=== PATIENT | female | born 1965 | race Caucasian/White ===

== ENCOUNTER → 2017-07-29 | Outpatient (CLI) | payer OTHER ==
[~2017-07-29] MED LIST: GADOBENATE DIMEGLUMINE 20 ML IV ONE
== END | disposition home or self-care (01) ==
LOC: RAH 10:25
PROVIDERS: ATTEND Physical Medicine & Rehabilitation
DX: Z12.31 Encounter for screening mammogram for malignant neoplasm of breast (principal); M47.896 Other spondylosis, lumbar region
CPT/HCPCS: 72158; 77067; A9577

== ENCOUNTER → 2019-04-20 | Outpatient (CLI) | payer BC, SELFPAY | END | disposition home or self-care (01) | LOC: RAH 13:03 | PROVIDERS: ATTEND Family Medicine | DX: Z12.31 Encounter for screening mammogram for malignant neoplasm of breast (principal) | CPT/HCPCS: 77067 ==

== ENCOUNTER 2021-08-17 02:12 | Emergency (ER) | payer BC ==
[~2021-08-17] VITALS: Ht 162.6 cm; Wt 113.4 kg
[~2021-08-17 02:12] MED LIST changes: +ACET250T28 PO; +ALBUHFA IH; +AMOX-426 PO; +ATOR10 PO; +BUDE10.2 IH; -GADOBENATE DIMEGLUMINE 20 ML IV ONE; +IPRA3AMP24 IH; +MONT10TA21 PO; +PRED20TA3 PO; +PROP40TA7 PO; +SITA100T12 PO
[2021-08-17 03:19] VITALS: BP 111/54
== END 2021-08-17 03:31 | disposition home or self-care (01) ==
LOC: EDH 02:12
DX: M79.604 Pain in right leg (principal); E11.9 Type 2 diabetes mellitus without complications; E78.00 Pure hypercholesterolemia, unspecified; I10 Essential (primary) hypertension; J44.9 Chronic obstructive pulmonary disease, unspecified; Z79.51 Long term (current) use of inhaled steroids; Z79.52 Long term (current) use of systemic steroids; Z79.899 Other long term (current) drug therapy
CPT/HCPCS: 93971

== ENCOUNTER → 2021-09-20 | Outpatient (CLI) | payer BC | END | disposition home or self-care (01) | LOC: RAH 12:47 | PROVIDERS: ATTEND Internal Medicine Pulmonary Disease | DX: I51.7 Cardiomegaly (principal); J84.9 Interstitial pulmonary disease, unspecified; I27.21 Secondary pulmonary arterial hypertension; J98.4 Other disorders of lung | CPT/HCPCS: 36415; 71250; 85651; 86038; 86140; 86215; 86235; 86255; 86431 ==

== ENCOUNTER → 2021-11-07 | Outpatient (CLI) | payer BC | END | disposition home or self-care (01) | LOC: LAB 11:27 | PROVIDERS: ATTEND Physician Assistant | DX: M51.16 Intervertebral disc disorders with radiculopathy, lumbar region (principal); E88.01 Alpha-1-antitrypsin deficiency | CPT/HCPCS: 36415; 72114; 82103; 82104 ==

== ENCOUNTER → 2021-11-08 | Outpatient (CLI) | payer BC | END | disposition home or self-care (01) | LOC: RAH 11:11 | PROVIDERS: ATTEND Physical Medicine & Rehabilitation | DX: M48.061 Spinal stenosis, lumbar region without neurogenic claudication (principal); M54.16 Radiculopathy, lumbar region | CPT/HCPCS: 72148 ==

== ENCOUNTER → 2021-11-25 | Outpatient (CLI) | payer BC | END | disposition home or self-care (01) | LOC: RAH 12:01 | PROVIDERS: ATTEND Internal Medicine Pulmonary Disease | DX: E88.01 Alpha-1-antitrypsin deficiency (principal) | CPT/HCPCS: 71046 ==

== ENCOUNTER → 2022-01-08 | Outpatient (CLI) | payer BC | END | disposition home or self-care (01) | LOC: RAH 15:04 | PROVIDERS: ATTEND Internal Medicine | DX: J98.4 Other disorders of lung (principal) | CPT/HCPCS: 71250 ==

== ENCOUNTER → 2022-01-10 | Outpatient (CLI) | payer BC ==
[~2022-01-10] MED LIST changes: +DAPA10TA PO; +FENTANYL CITRATE PF 50 MCG/1 ML 2ML VIAL ONE; +FLUT1BLS3 IH; +HEPARIN 1,000 UNIT VIAL ONE; +MAGN300C PO; +METO-408 PO; +SITA1TBM7 PO
[2022-01-10 10:13] VITALS: BP 128/61
[2022-01-10 10:30] VITALS: BP 132/72
[2022-01-10 12:21] LABS: BASOPHILS % (AUTO) 0.5 % (0.0-5.0); EOSINOPHILS % (AUTO) 1.9 % (0.0-8.0); HEMATOCRIT 45.5 % (36-48); LYMPHOCYTES % (AUTO) 23.1 % (21.0-51.0); MEAN CORPUSCULAR HEMOGLOBIN 27.9 pg (27.0-33.0); MEAN CORPUSCULAR HGB CONC 32.3 g/dL (32.0-36.0); MEAN CORPUSCULAR VOLUME 86.5 fL (79-99); MONOCYTES % (AUTO) 5.8 % (3.0-13.0); NEUTROPHILS % (AUTO) 68.5 % (40.0-77.0); PLATELET COUNT (AUTO) 189 K/uL (130-400); RED BLOOD CELL COUNT(AUTO) 5.26 MIL/uL (4.00-5.50); RED CELL DISTRIBUTION WIDTH 14.3 % (11.0-15.5); WHITE BLOOD COUNT (AUTO) 8.6 K/uL (4.8-10.8)
[2022-01-10 12:51] LABS: INR 0.93 (0.85-1.15); PROTHROMBIN TIME 10.2 SEC (9.6-11.6)
[2022-01-10 12:52] LABS: CREATININE 0.7 mg/dL (0.5-1.5); PARTIAL THROMBOPLASTIN TIME 27.1 SEC (26.3-35.5); POTASSIUM 4.4 mmol/L (3.5-5.1)
[2022-01-10 14:45] VITALS: BP 120/62
[2022-01-10 15:00] VITALS: BP 126/63
[2022-01-10 15:15] VITALS: BP 127/66
== END | disposition home or self-care (01) ==
LOC: DAH 10:00 → EDSTATUS 10:00
PROVIDERS: ATTEND Surgery
DX: T85.698A Other mechanical complication of other specified internal prosthetic devices, implants and grafts, initial encounter (principal); K57.20 Diverticulitis of large intestine with perforation and abscess without bleeding; F17.200 Nicotine dependence, unspecified, uncomplicated; E88.01 Alpha-1-antitrypsin deficiency; Z90.710 Acquired absence of both cervix and uterus; Z79.01 Long term (current) use of anticoagulants; Z79.899 Other long term (current) drug therapy; Z90.89 Acquired absence of other organs; Y83.8 Other surgical procedures as the cause of abnormal reaction of the patient, or of later complication, without mention of misadventure at the time of the procedure
CPT/HCPCS: 36575; 77001; 80048; 85025; 85610; 85730; 82948; 36415; C1751; C1769; A4663; J3010; J1644 ×2; A4215; A4222; A4221; A4216; J7030; A4606; A4223 ×3

== ENCOUNTER 2022-04-10 17:28 | Emergency (ER) | payer BC ==
[~2022-04-10 17:28] MED LIST changes: -FENTANYL CITRATE PF 50 MCG/1 ML 2ML VIAL ONE; -HEPARIN 1,000 UNIT VIAL ONE
[2022-04-10 18:23] LABS: BASOPHILS % (AUTO) 0.2 % (0.0-5.0); EOSINOPHILS % (AUTO) 0.4 % (0.0-8.0); HEMATOCRIT 43.8 % (36-48); LYMPHOCYTES % (AUTO) 5.1 % (21.0-51.0); MEAN CORPUSCULAR HEMOGLOBIN 28.5 pg (27.0-33.0); MEAN CORPUSCULAR HGB CONC 32.6 g/dL (32.0-36.0); MEAN CORPUSCULAR VOLUME 87.3 fL (79-99); NEUTROPHILS % (AUTO) 90.6 % (40.0-77.0); PLATELET COUNT (AUTO) 159 K/uL (130-400); RED BLOOD CELL COUNT(AUTO) 5.02 MIL/uL (4.00-5.50); RED CELL DISTRIBUTION WIDTH 14.4 % (11.0-15.5); WHITE BLOOD COUNT (AUTO) 9.7 K/uL (4.8-10.8)
[2022-04-10 18:44] LABS: INR 1.01 (0.85-1.15)
[2022-04-10 18:45] LABS: PARTIAL THROMBOPLASTIN TIME 27.1 SEC (26.3-35.5)
[2022-04-10 18:52] LABS: ALBUMIN 3.4 g/dL (3.5-5.0); POTASSIUM 3.7 mmol/L (3.5-5.1); TOTAL PROTEIN, SERUM 7.3 g/dL (6.0-8.3)
[2022-04-10] MEDS ORDERED: ACETAMINOPHEN 500 MG TABLET PO STA (19:43)
[2022-04-10] MEDS ORDERED: 0.9%NACL 1000ML 3,000 ML IV ONE (19:48)
[2022-04-10 21:22] LABS: APPEARANCE,URINE CLEAR (CLEAR); BILIRUBIN,URINE NEGATIVE (NEGATIVE); COLOR,URINE LIGHT-YELLOW (YELLOW); GLUCOSE, URINE (UA) >=1000 mg/dL (NEGATIVE); KETONES,URINE NEGATIVE (NEGATIVE); LEUKOCYTE ESTERASE ,URINE NEGATIVE Leu/uL (NEGATIVE); NITRATE,URINE NEGATIVE (NEGATIVE); OCCULT BLOOD,URINE NEGATIVE (NEGATIVE); PROTEIN,URINE 50 mg/dL (NEGATIVE); UROBILINOGEN,URINE 0.2 mg/dL (0.2-1.0)
[2022-04-10 21:26] LABS: BACTERIA,URINE FEW /HPF (None Seen); RBC,URINE 0-1 /HPF (0-1); SQUAMOUS EPITHELIAL CELL,UR FEW /HPF (0-2)
[2022-04-11] MEDS ORDERED: 0.9%NACL 1000ML 1,000 ML IV ONE (02:00)
[2022-04-11 02:55] VITALS: BP 132/58
== END 2022-04-11 02:59 | disposition home or self-care (01) ==
LOC: EDH 17:28
DX: B34.9 Viral infection, unspecified (principal); E88.01 Alpha-1-antitrypsin deficiency; J44.9 Chronic obstructive pulmonary disease, unspecified; Z79.899 Other long term (current) drug therapy; Z20.822 Contact with and (suspected) exposure to COVID-19
CPT/HCPCS: 99284; 96360; 71045; 87635; 82550; 84484; 80053; 85025; 85610; 85730; 87040 ×2; 87077; 87088; 87186; 87804 ×2; 81001; 36415 ×2; 93005; 83605 ×3; C9803; J7030

== ENCOUNTER 2022-04-17 16:23 | Inpatient (IN) | payer BC ==
[~2022-04-17] VITALS: Ht 162.6 cm; Wt 117.8 kg
[2022-04-17] MEDS ORDERED: ACETAMINOPHEN 500 MG TABLET ONE (17:29)
[2022-04-17 17:34] LABS: BASOPHILS % (AUTO) 0.2 % (0.0-5.0); EOSINOPHILS % (AUTO) 0.5 % (0.0-8.0); HEMATOCRIT 49.6 % (36-48); LYMPHOCYTES % (AUTO) 5.4 % (21.0-51.0); MEAN CORPUSCULAR HEMOGLOBIN 28.1 pg (27.0-33.0); MEAN CORPUSCULAR HGB CONC 31.9 g/dL (32.0-36.0); MEAN CORPUSCULAR VOLUME 88.1 fL (79-99); MONOCYTES % (AUTO) 3.7 % (3.0-13.0); NEUTROPHILS % (AUTO) 89.4 % (40.0-77.0); PLATELET COUNT (AUTO) 172 K/uL (130-400); RED BLOOD CELL COUNT(AUTO) 5.63 MIL/uL (4.00-5.50); RED CELL DISTRIBUTION WIDTH 14.3 % (11.0-15.5); WHITE BLOOD COUNT (AUTO) 9.7 K/uL (4.8-10.8)
[2022-04-17 17:44] LABS: CREATININE 0.8 mg/dL (0.5-1.5); POTASSIUM 4.1 mmol/L (3.5-5.1)
[2022-04-17 17:54] LABS: ALBUMIN 3.9 g/dL (3.5-5.0); TOTAL PROTEIN, SERUM 8.8 g/dL (6.0-8.3)
[2022-04-17 18:03] LABS: B-TYPE NATRIURETIC PEPTIDE 8 pg/mL (0-100)
[2022-04-17] MEDS ORDERED: MEROPENEM 1 GM VIAL IVP STA (18:53)
[2022-04-17 18:57] LABS: APPEARANCE,URINE CLEAR (CLEAR); BILIRUBIN,URINE NEGATIVE (NEGATIVE); COLOR,URINE YELLOW (YELLOW); GLUCOSE, URINE (UA) >=1000 mg/dL (NEGATIVE); KETONES,URINE NEGATIVE (NEGATIVE); LEUKOCYTE ESTERASE ,URINE NEGATIVE Leu/uL (NEGATIVE); NITRATE,URINE NEGATIVE (NEGATIVE); OCCULT BLOOD,URINE NEGATIVE (NEGATIVE); PH,URINE 5.5 (5.0-8.0); PROTEIN,URINE 70 mg/dL (NEGATIVE); UROBILINOGEN,URINE 0.2 mg/dL (0.2-1.0)
[2022-04-17] MEDS ORDERED: VANCOMYCIN 1G VIAL IVPB ONE (19:00)
[2022-04-17] MEDS ORDERED: 0.9% NACL 250ML IV SCH (19:00)
[2022-04-17] MEDS ORDERED: ONDANSETRON 4MG INJ IVP PRN (19:00)
[2022-04-17] MEDS ORDERED: VANCOMYCIN 1G VIAL IVPB SCH (19:00)
[2022-04-17 19:01] LABS: BACTERIA,URINE RARE /HPF (None Seen); MUCUS,URINE RARE LPF (None Seen); SQUAMOUS EPITHELIAL CELL,UR FEW /HPF (0-2)
[2022-04-17] MEDS: 0.9%NACL 1000ML 1,000 ML IV SCH (19:21)
[2022-04-17] MEDS ORDERED: VANCOMYCIN KIT 1 GM/250 ML IV.KIT IV ONE (19:30)
[2022-04-17] MEDS: ZOSYN 3.375GM +NS 50ML IV SCH (19:45)
[2022-04-17] MEDS ORDERED: DEXTROSE 50%-WATER 50 ML DISP.SYRIN IV PRN (21:00)
[2022-04-17] MEDS: INSULIN HUMULIN R 100 UNIT/ML 3ML SQ SCH (21:00)
[2022-04-17] MEDS ORDERED: GLUCAGON 1MG KIT 1 MG ML IM PRN (21:00)
[2022-04-17 21:25] LABS: HEMOGLOBIN A1C 6.3 % (4.0-6.0)
[2022-04-17] MEDS ORDERED: SODIUM CHLORIDE 3% FOR INHALATION 4 ML/AMP VIAL.NEB IH ONE (22:49)
[2022-04-18 00:44] VITALS: BP 115/59
[2022-04-18] MEDS ORDERED: IPRATROPIUM/ALBUTEROL SULFATE 3 ML SOLUTION IH PRN (01:30)
[2022-04-18] MEDS: ZOSYN 3.375GM +NS 50ML IV SCH (03:27)
[2022-04-18 04:42] VITALS: BP 93/49
[2022-04-18] MEDS: 0.9%NACL 1000ML 1,000 ML IV SCH ×2 (05:00→16:27)
[2022-04-18] MEDS ORDERED: SODIUM CHLORIDE 3% FOR INHALATION 4 ML/AMP VIAL.NEB IH ONE ×2 (06:39→10:59)
[2022-04-18] MEDS: INSULIN HUMULIN R 100 UNIT/ML 3ML SQ SCH ×4 (06:48→20:30)
[2022-04-18 08:00] VITALS: BP 100/70
[2022-04-18] MEDS: FAMOTIDINE 20MG VIAL IV SCH ×2 (09:05→20:39)
[2022-04-18] MEDS ORDERED: VANCOMYCIN PROTOCOL PER PHARMACY IV SCH (09:30)
[2022-04-18] MEDS: CEFEPIME HCL 2 GM VIAL IVP SCH ×2 (11:11→20:39)
[2022-04-18] MEDS: ***HM***(Fluticasone/Umeclidin/Vilanter (Trelegy Ellipta 100-62.5- IH SCH (11:23)
[2022-04-18 12:00] VITALS: BP 136/71
[2022-04-18] MEDS: ENOXAPARIN SODIUM 30 MG/0.3 ML SQ SCH (12:35)
[2022-04-18] MEDS ORDERED: VANCOMYCIN 2GM/500 ML BAG 500 ML IV ONE (13:00)
[2022-04-18 16:00] VITALS: BP 143/89
[2022-04-18] MEDS ORDERED: DiphenhydrAMINE HCL 50 MG/ML VIAL IV ONE (16:00)
[2022-04-18] MEDS: BUDESONIDE 0.25 MG/2 ML INH IH SCH ×2 (18:00→18:54)
[2022-04-18 20:14] VITALS: BP 137/77
[2022-04-18] MEDS: ATORVASTATIN 10 MG TABLET PO SCH (20:39)
[2022-04-19] VITALS (7 sets, daily range): BP systolic 115–158; BP diastolic 60–90
[2022-04-19] MEDS: ALBUTEROL 0.083% 2.5 MG/3 ML INH IH SCH ×5 (01:11→23:33)
[2022-04-19] MEDS: IPRATROPIUM 0.5 MG/2.5 ML INH IH SCH ×5 (01:11→23:33)
[2022-04-19] MEDS: 0.9%NACL 1000ML 1,000 ML IV SCH ×3 (01:12→20:14)
[2022-04-19] MEDS ORDERED: VANCOMYCIN 1G/250ML KIT 250 ML IV SCH (06:00)
[2022-04-19] MEDS: BUDESONIDE 0.25 MG/2 ML INH IH SCH ×2 (06:37→19:06)
[2022-04-19] MEDS: INSULIN HUMULIN R 100 UNIT/ML 3ML SQ SCH ×4 (06:39→21:05)
[2022-04-19 07:13] LABS: BASOPHILS % (AUTO) 0.4 % (0.0-5.0); EOSINOPHILS % (AUTO) 1.8 % (0.0-8.0); HEMATOCRIT 39.9 % (36-48); LYMPHOCYTES % (AUTO) 26.8 % (21.0-51.0); MEAN CORPUSCULAR HEMOGLOBIN 27.8 pg (27.0-33.0); MEAN CORPUSCULAR HGB CONC 31.3 g/dL (32.0-36.0); MEAN CORPUSCULAR VOLUME 88.9 fL (79-99); MONOCYTES % (AUTO) 8.8 % (3.0-13.0); NEUTROPHILS % (AUTO) 61.7 % (40.0-77.0); PLATELET COUNT (AUTO) 177 K/uL (130-400); RED BLOOD CELL COUNT(AUTO) 4.49 MIL/uL (4.00-5.50); RED CELL DISTRIBUTION WIDTH 14.4 % (11.0-15.5); WHITE BLOOD COUNT (AUTO) 7.6 K/uL (4.8-10.8)
[2022-04-19 07:33] LABS: CREATININE 0.7 mg/dL (0.5-1.5); MAGNESIUM 2.1 mg/dL (1.80-2.40); PHOSPHORUS 4.6 mg/dL (2.5-4.9); POTASSIUM 3.6 mmol/L (3.5-5.1)
[2022-04-19] MEDS: ***HM***(Fluticasone/Umeclidin/Vilanter (Trelegy Ellipta 100-62.5- IH SCH (09:00)
[2022-04-19] MEDS ORDERED: PREDNISONE 20 MG TABLET PO SCH (09:00)
[2022-04-19] MEDS: METOPROLOL SUCCINATE 25 MG TAB.SR.24H PO SCH (09:58)
[2022-04-19] MEDS: CEFEPIME HCL 2 GM VIAL IVP SCH ×2 (09:59→20:14)
[2022-04-19] MEDS: FAMOTIDINE 20MG VIAL IV SCH ×2 (09:59→20:14)
[2022-04-19] MEDS: ENOXAPARIN SODIUM 30 MG/0.3 ML SQ SCH (09:59)
[2022-04-19] MEDS: ACETAMINOPHEN 325 MG TAB PO PRN (10:57)
[2022-04-19] MEDS: ATORVASTATIN 10 MG TABLET PO SCH (20:14)
[2022-04-19] MEDS: ZYVOX 600 MG TAB PO SCH (23:22)
[2022-04-20 04:35] VITALS: BP 142/57
[2022-04-20 05:37] LABS: BASOPHILS % (AUTO) 0.2 % (0.0-5.0); EOSINOPHILS % (AUTO) 0.2 % (0.0-8.0); HEMATOCRIT 38.8 % (36-48); LYMPHOCYTES % (AUTO) 21.6 % (21.0-51.0); MEAN CORPUSCULAR HEMOGLOBIN 27.7 pg (27.0-33.0); MEAN CORPUSCULAR VOLUME 86.8 fL (79-99); MONOCYTES % (AUTO) 7.2 % (3.0-13.0); NEUTROPHILS % (AUTO) 70.2 % (40.0-77.0); PLATELET COUNT (AUTO) 182 K/uL (130-400); RED BLOOD CELL COUNT(AUTO) 4.47 MIL/uL (4.00-5.50); RED CELL DISTRIBUTION WIDTH 14.1 % (11.0-15.5); WHITE BLOOD COUNT (AUTO) 8.1 K/uL (4.8-10.8)
[2022-04-20] MEDS: INSULIN HUMULIN R 100 UNIT/ML 3ML SQ SCH ×4 (05:52→21:00)
[2022-04-20 05:58] LABS: CREATININE 0.7 mg/dL (0.5-1.5); POTASSIUM 3.5 mmol/L (3.5-5.1)
[2022-04-20] MEDS: 0.9%NACL 1000ML 1,000 ML IV SCH ×2 (07:00→17:18)
[2022-04-20] MEDS: ALBUTEROL 0.083% 2.5 MG/3 ML INH IH SCH ×4 (07:13→23:42)
[2022-04-20] MEDS: IPRATROPIUM 0.5 MG/2.5 ML INH IH SCH ×4 (07:13→23:42)
[2022-04-20] MEDS: BUDESONIDE 0.25 MG/2 ML INH IH SCH ×2 (07:13→19:00)
[2022-04-20 08:00] VITALS: BP 124/71
[2022-04-20] MEDS: ***HM***(Fluticasone/Umeclidin/Vilanter (Trelegy Ellipta 100-62.5- IH SCH (09:00)
[2022-04-20] MEDS: FAMOTIDINE 20MG VIAL IV SCH ×2 (10:17→21:13)
[2022-04-20] MEDS: METOPROLOL SUCCINATE 25 MG TAB.SR.24H PO SCH (10:17)
[2022-04-20] MEDS: CEFEPIME HCL 2 GM VIAL IVP SCH ×2 (10:17→21:13)
[2022-04-20] MEDS: ENOXAPARIN SODIUM 30 MG/0.3 ML SQ SCH (10:18)
[2022-04-20 12:00] VITALS: BP 114/61
[2022-04-20] MEDS: ZYVOX 600 MG TAB PO SCH ×2 (12:05→23:20)
[2022-04-20 16:00] VITALS: BP 124/62
[2022-04-20 20:00] VITALS: BP 136/68
[2022-04-20] MEDS: ATORVASTATIN 10 MG TABLET PO SCH (21:13)
[2022-04-21] VITALS (7 sets, daily range): BP systolic 131–160; BP diastolic 53–94
[2022-04-21] MEDS: 0.9%NACL 1000ML 1,000 ML IV SCH ×3 (02:15→21:36)
[2022-04-21 04:58] LABS: BASOPHILS % (AUTO) 0.4 % (0.0-5.0); EOSINOPHILS % (AUTO) 2.1 % (0.0-8.0); HEMATOCRIT 36.9 % (36-48); LYMPHOCYTES % (AUTO) 31.1 % (21.0-51.0); MEAN CORPUSCULAR HEMOGLOBIN 28.1 pg (27.0-33.0); MEAN CORPUSCULAR HGB CONC 31.4 g/dL (32.0-36.0); MEAN CORPUSCULAR VOLUME 89.3 fL (79-99); MONOCYTES % (AUTO) 6.1 % (3.0-13.0); NEUTROPHILS % (AUTO) 59.8 % (40.0-77.0); PLATELET COUNT (AUTO) 171 K/uL (130-400); RED BLOOD CELL COUNT(AUTO) 4.13 MIL/uL (4.00-5.50); RED CELL DISTRIBUTION WIDTH 14.3 % (11.0-15.5)
[2022-04-21] MEDS: INSULIN HUMULIN R 100 UNIT/ML 3ML SQ SCH ×4 (05:08→21:00)
[2022-04-21 05:11] LABS: CREATININE 0.7 mg/dL (0.5-1.5); POTASSIUM 3.6 mmol/L (3.5-5.1)
[2022-04-21] MEDS: BUDESONIDE 0.25 MG/2 ML INH IH SCH ×2 (06:54→18:45)
[2022-04-21] MEDS: ALBUTEROL 0.083% 2.5 MG/3 ML INH IH SCH ×4 (06:54→23:11)
[2022-04-21] MEDS: IPRATROPIUM 0.5 MG/2.5 ML INH IH SCH ×4 (06:55→23:11)
[2022-04-21 07:43] LABS: INR 0.99 (0.85-1.15); PROTHROMBIN TIME 10.8 SEC (9.6-11.6)
[2022-04-21 07:44] LABS: PARTIAL THROMBOPLASTIN TIME 26.5 SEC (26.3-35.5)
[2022-04-21] MEDS: ***HM***(Fluticasone/Umeclidin/Vilanter (Trelegy Ellipta 100-62.5- IH SCH (09:00)
[2022-04-21] MEDS: FAMOTIDINE 20MG VIAL IV SCH ×2 (09:03→20:17)
[2022-04-21] MEDS: METOPROLOL SUCCINATE 25 MG TAB.SR.24H PO SCH (09:03)
[2022-04-21] MEDS: CEFEPIME HCL 2 GM VIAL IVP SCH ×2 (09:03→20:17)
[2022-04-21] MEDS: ENOXAPARIN SODIUM 30 MG/0.3 ML SQ SCH (09:04)
[2022-04-21] MEDS: ZYVOX 600 MG TAB PO SCH ×2 (11:50→23:17)
[2022-04-21] MEDS ORDERED: LOSARTAN 25 MG TABLET PO ONE (16:30)
[2022-04-21] MEDS: ATORVASTATIN 10 MG TABLET PO SCH (20:17)
[2022-04-22] VITALS (14 sets, daily range): BP systolic 117–163; BP diastolic 51–77
[2022-04-22 05:35] LABS: BASOPHILS % (AUTO) 0.4 % (0.0-5.0); EOSINOPHILS % (AUTO) 2.1 % (0.0-8.0); HEMATOCRIT 33.9 % (36-48); LYMPHOCYTES % (AUTO) 24.1 % (21.0-51.0); MEAN CORPUSCULAR HEMOGLOBIN 28.2 pg (27.0-33.0); MEAN CORPUSCULAR HGB CONC 32.7 g/dL (32.0-36.0); NEUTROPHILS % (AUTO) 66.8 % (40.0-77.0); PLATELET COUNT (AUTO) 179 K/uL (130-400); RED BLOOD CELL COUNT(AUTO) 3.94 MIL/uL (4.00-5.50); RED CELL DISTRIBUTION WIDTH 14.1 % (11.0-15.5); WHITE BLOOD COUNT (AUTO) 8.5 K/uL (4.8-10.8)
[2022-04-22 05:49] LABS: CREATININE 0.7 mg/dL (0.5-1.5); CRP QUANTITATIVE 6.6 mg/L (0.00-9.0); POTASSIUM 3.4 mmol/L (3.5-5.1)
[2022-04-22] MEDS ORDERED: LIDOCAINE HCL-MPF 1% 2ML VIAL IV PRN (06:00)
[2022-04-22] MEDS ORDERED: POTASSIUM CHLORIDE 10% ELIXIR 20 MEQ/15 ML UDCUP PO PRN (06:00)
[2022-04-22] MEDS ORDERED: POTASSIUM CHLORIDE 20MEQ/100ML 100 ML IV PRN (06:00)
[2022-04-22] MEDS ORDERED: KCL 20 MEQ ERTAB PO ONE (06:02)
[2022-04-22] MEDS: KCL 20 MEQ ERTAB PO PRN ×2 (06:08→09:36)
[2022-04-22] MEDS: ALBUTEROL 0.083% 2.5 MG/3 ML INH IH SCH ×4 (06:55→23:52)
[2022-04-22] MEDS: IPRATROPIUM 0.5 MG/2.5 ML INH IH SCH ×4 (06:55→23:52)
[2022-04-22] MEDS: BUDESONIDE 0.25 MG/2 ML INH IH SCH ×2 (06:55→18:58)
[2022-04-22] MEDS: INSULIN HUMULIN R 100 UNIT/ML 3ML SQ SCH ×4 (06:59→19:58)
[2022-04-22 07:37] LABS: ERYTHROCYTE SEDIMENTATION RATE 22 MM/HR (0-30)
[2022-04-22] MEDS: ENOXAPARIN SODIUM 30 MG/0.3 ML SQ SCH (09:00)
[2022-04-22] MEDS: ***HM***(Fluticasone/Umeclidin/Vilanter (Trelegy Ellipta 100-62.5- IH SCH (09:00)
[2022-04-22] MEDS: FAMOTIDINE 20MG VIAL IV SCH ×2 (09:36→19:45)
[2022-04-22] MEDS: CEFEPIME HCL 2 GM VIAL IVP SCH ×2 (09:36→19:45)
[2022-04-22] MEDS: METOPROLOL SUCCINATE 25 MG TAB.SR.24H PO SCH (09:36)
[2022-04-22] MEDS: LOSARTAN 25 MG TABLET PO SCH (09:36)
[2022-04-22] MEDS ORDERED: LIDOCAINE HCL 1% MDV 50ML VIAL ONE (10:46)
[2022-04-22] MEDS ORDERED: MIDAZOLAM HCL 1 MG/ML 2ML VIAL ONE (11:34)
[2022-04-22] MEDS ORDERED: LIDOCAINE HCL 400MG/20ML VIAL ONE (11:35)
[2022-04-22] MEDS ORDERED: FENTANYL CITRATE PF 50 MCG/1 ML 2ML VIAL ONE (11:35)
[2022-04-22] MEDS ORDERED: OCTYL 2-CYANOACRYLATE 1 EACH TP ONE (11:59)
[2022-04-22] MEDS: ZYVOX 600 MG TAB PO SCH ×2 (13:20→23:03)
[2022-04-22] MEDS: 0.9%NACL 1000ML 1,000 ML IV SCH ×2 (13:21→19:00)
[2022-04-22] MEDS: ATORVASTATIN 10 MG TABLET PO SCH (19:45)
[2022-04-22] MEDS: ACETAMINOPHEN 325 MG TAB PO PRN (19:57)
[2022-04-23] VITALS: BP 158/81
[2022-04-23 04:00] VITALS: BP 115/49
[2022-04-23] MEDS: 0.9%NACL 1000ML 1,000 ML IV SCH ×2 (04:41→15:00)
[2022-04-23] MEDS: INSULIN HUMULIN R 100 UNIT/ML 3ML SQ SCH ×4 (05:09→20:47)
[2022-04-23 05:41] LABS: BASOPHILS % (AUTO) 0.5 % (0.0-5.0); EOSINOPHILS % (AUTO) 2.8 % (0.0-8.0); HEMATOCRIT 36.8 % (36-48); MEAN CORPUSCULAR HGB CONC 32.1 g/dL (32.0-36.0); MEAN CORPUSCULAR VOLUME 87.2 fL (79-99); MONOCYTES % (AUTO) 5.8 % (3.0-13.0); NEUTROPHILS % (AUTO) 63.5 % (40.0-77.0); PLATELET COUNT (AUTO) 185 K/uL (130-400); RED BLOOD CELL COUNT(AUTO) 4.22 MIL/uL (4.00-5.50); RED CELL DISTRIBUTION WIDTH 14.2 % (11.0-15.5)
[2022-04-23 05:58] LABS: ALBUMIN 2.9 g/dL (3.5-5.0); CREATININE 0.7 mg/dL (0.5-1.5); MAGNESIUM 1.6 mg/dL (1.80-2.40); POTASSIUM 3.7 mmol/L (3.5-5.1); TOTAL PROTEIN, SERUM 6.3 g/dL (6.0-8.3)
[2022-04-23] MEDS ORDERED: MAGNESIUM 2GM PREMIX 50ML 50 ML IV ONE (06:19)
[2022-04-23] MEDS: KCL 20 MEQ ERTAB PO PRN ×2 (06:20→08:47)
[2022-04-23] MEDS: BUDESONIDE 0.25 MG/2 ML INH IH SCH ×2 (06:33→19:03)
[2022-04-23] MEDS: ALBUTEROL 0.083% 2.5 MG/3 ML INH IH SCH ×4 (06:33→23:24)
[2022-04-23] MEDS: IPRATROPIUM 0.5 MG/2.5 ML INH IH SCH ×4 (06:33→23:24)
[2022-04-23 07:25] VITALS: BP 129/56
[2022-04-23] MEDS: CEFEPIME HCL 2 GM VIAL IVP SCH ×2 (08:43→20:47)
[2022-04-23] MEDS: FAMOTIDINE 20MG VIAL IV SCH ×2 (08:46→20:47)
[2022-04-23] MEDS: LOSARTAN 25 MG TABLET PO SCH (08:47)
[2022-04-23] MEDS: METOPROLOL SUCCINATE 25 MG TAB.SR.24H PO SCH (08:47)
[2022-04-23] MEDS: ENOXAPARIN SODIUM 30 MG/0.3 ML SQ SCH (08:48)
[2022-04-23] MEDS: ***HM***(Fluticasone/Umeclidin/Vilanter (Trelegy Ellipta 100-62.5- IH SCH (09:00)
[2022-04-23] MEDS: ZYVOX 600 MG TAB PO SCH ×2 (11:38→22:01)
[2022-04-23 11:45] VITALS: BP 140/64
[2022-04-23] MEDS: ACETAMINOPHEN 325 MG TAB PO PRN (15:03)
[2022-04-23 16:25] VITALS: BP 138/76
[2022-04-23 20:00] VITALS: BP 143/55
[2022-04-23] MEDS: ATORVASTATIN 10 MG TABLET PO SCH (20:47)
[2022-04-24] VITALS (7 sets, daily range): BP systolic 129–156; BP diastolic 51–88
[2022-04-24] MEDS: ACETAMINOPHEN 325 MG TAB PO PRN ×2 (00:22→20:41)
[2022-04-24] MEDS: 0.9%NACL 1000ML 1,000 ML IV SCH ×3 (01:00→21:00)
[2022-04-24] MEDS: INSULIN HUMULIN R 100 UNIT/ML 3ML SQ SCH ×4 (06:32→20:20)
[2022-04-24] MEDS: ALBUTEROL 0.083% 2.5 MG/3 ML INH IH SCH ×4 (07:08→23:06)
[2022-04-24] MEDS: BUDESONIDE 0.25 MG/2 ML INH IH SCH ×2 (07:09→19:22)
[2022-04-24] MEDS: IPRATROPIUM 0.5 MG/2.5 ML INH IH SCH ×4 (07:09→23:06)
[2022-04-24] MEDS: LOSARTAN 25 MG TABLET PO SCH (08:57)
[2022-04-24] MEDS: FAMOTIDINE 20MG VIAL IV SCH ×2 (08:57→20:40)
[2022-04-24] MEDS: CEFEPIME HCL 2 GM VIAL IVP SCH ×2 (08:57→20:40)
[2022-04-24] MEDS: METOPROLOL SUCCINATE 25 MG TAB.SR.24H PO SCH (08:57)
[2022-04-24] MEDS: ENOXAPARIN SODIUM 30 MG/0.3 ML SQ SCH (08:58)
[2022-04-24] MEDS: ***HM***(Fluticasone/Umeclidin/Vilanter (Trelegy Ellipta 100-62.5- IH SCH (09:00)
[2022-04-24] MEDS: ZYVOX 600 MG TAB PO SCH ×2 (11:49→22:59)
[2022-04-24] MEDS: ATORVASTATIN 10 MG TABLET PO SCH (20:40)
[2022-04-25 05:16] LABS: BASOPHILS % (AUTO) 0.3 % (0.0-5.0); EOSINOPHILS % (AUTO) 2.3 % (0.0-8.0); HEMATOCRIT 39.4 % (36-48); MEAN CORPUSCULAR HGB CONC 32.5 g/dL (32.0-36.0); MEAN CORPUSCULAR VOLUME 86.2 fL (79-99); MONOCYTES % (AUTO) 6.1 % (3.0-13.0); NEUTROPHILS % (AUTO) 63.9 % (40.0-77.0); PLATELET COUNT (AUTO) 211 K/uL (130-400); RED BLOOD CELL COUNT(AUTO) 4.57 MIL/uL (4.00-5.50); WHITE BLOOD COUNT (AUTO) 7.7 K/uL (4.8-10.8)
[2022-04-25 05:21] LABS: PROTHROMBIN TIME 10.9 SEC (9.6-11.6)
[2022-04-25 05:22] LABS: PARTIAL THROMBOPLASTIN TIME 26.8 SEC (26.3-35.5)
[2022-04-25 05:34] LABS: CREATININE 0.7 mg/dL (0.5-1.5); MAGNESIUM 1.7 mg/dL (1.80-2.40); PHOSPHORUS 4.8 mg/dL (2.5-4.9); POTASSIUM 3.7 mmol/L (3.5-5.1)
[2022-04-25] MEDS: INSULIN HUMULIN R 100 UNIT/ML 3ML SQ SCH ×2 (06:18→11:30)
[2022-04-25 06:26] VITALS: BP 141/69
[2022-04-25] MEDS ORDERED: LIDOCAINE HCL 1% 20 ML VIAL ONE (07:11)
[2022-04-25] MEDS ORDERED: HEPARIN 1,000 UNIT VIAL ONE (07:12)
[2022-04-25] MEDS: IPRATROPIUM 0.5 MG/2.5 ML INH IH SCH ×2 (07:23→11:45)
[2022-04-25] MEDS: ALBUTEROL 0.083% 2.5 MG/3 ML INH IH SCH ×2 (07:24→11:44)
[2022-04-25] MEDS: BUDESONIDE 0.25 MG/2 ML INH IH SCH (07:24)
[2022-04-25 08:00] VITALS: BP 125/51
[2022-04-25] MEDS: ***HM***(Fluticasone/Umeclidin/Vilanter (Trelegy Ellipta 100-62.5- IH SCH (08:47)
[2022-04-25] MEDS: CEFEPIME HCL 2 GM VIAL IVP SCH (10:07)
[2022-04-25] MEDS: LOSARTAN 25 MG TABLET PO SCH (10:07)
[2022-04-25] MEDS: METOPROLOL SUCCINATE 25 MG TAB.SR.24H PO SCH (10:07)
[2022-04-25] MEDS: FAMOTIDINE 20MG VIAL IV SCH (10:07)
[2022-04-25] MEDS: ENOXAPARIN SODIUM 30 MG/0.3 ML SQ SCH (10:07)
[2022-04-25] MEDS: 0.9%NACL 1000ML 1,000 ML IV SCH ×2 (10:07→14:26)
[2022-04-25] MEDS: ZYVOX 600 MG TAB PO SCH (13:17)
[2022-04-25] MEDS ORDERED: LOSA25TA2 PO (17:35)
[2022-04-25] MEDS ORDERED: LEVO750T68 PO (17:35)
== END 2022-04-25 17:55 | disposition home or self-care (01) | DRG 314 ==
LOC: EDH 16:23 → EDHIP 18:57 → 3CH 22:56
PROVIDERS: ADMIT Internal Medicine; ATTEND Internal Medicine
PROC: 05PYX3Z Removal of Infusion Device from Upper Vein, External Approach (ICD-10-PCS; principal; 2022-04-22)
PROC: 5A09357 Assistance with Respiratory Ventilation, Less than 24 Consecutive Hours, Continuous Positive Airway Pressure (ICD-10-PCS; 2022-04-23)
PROC: 5A09357 Assistance with Respiratory Ventilation, Less than 24 Consecutive Hours, Continuous Positive Airway Pressure (ICD-10-PCS; 2022-04-24)
PROC: 0JH63XZ Insertion of Tunneled Vascular Access Device into Chest Subcutaneous Tissue and Fascia, Percutaneous Approach (ICD-10-PCS; 2022-04-25)
PROC: 02H633Z Insertion of Infusion Device into Right Atrium, Percutaneous Approach (ICD-10-PCS; 2022-04-25)
PROC: B5181ZA Fluoroscopy of Superior Vena Cava using Low Osmolar Contrast, Guidance (ICD-10-PCS; 2022-04-25)
PROC: 5A09357 Assistance with Respiratory Ventilation, Less than 24 Consecutive Hours, Continuous Positive Airway Pressure (ICD-10-PCS; 2022-04-25)
DX: T80.211A Bloodstream infection due to central venous catheter, initial encounter (principal); A41.9 Sepsis, unspecified organism; J96.20 Acute and chronic respiratory failure, unspecified whether with hypoxia or hypercapnia; Z68.41 Body mass index [BMI] 40.0-44.9, adult; J44.9 Chronic obstructive pulmonary disease, unspecified; E11.9 Type 2 diabetes mellitus without complications; I10 Essential (primary) hypertension; E66.9 Obesity, unspecified; G47.33 Obstructive sleep apnea (adult) (pediatric); E66.01 Morbid (severe) obesity due to excess calories; E78.00 Pure hypercholesterolemia, unspecified; F32.A Depression, unspecified; F41.9 Anxiety disorder, unspecified; M19.90 Unspecified osteoarthritis, unspecified site; T36.8X5A Adverse effect of other systemic antibiotics, initial encounter; Y84.8 Other medical procedures as the cause of abnormal reaction of the patient, or of later complication, without mention of misadventure at the time of the procedure; Z79.84 Long term (current) use of oral hypoglycemic drugs; Z79.899 Other long term (current) drug therapy; Z83.3 Family history of diabetes mellitus
CPT/HCPCS: 36415; 36556; 36558; 36589; 37197; 71045; 77001; 80048; 80053; 80202; 81001; 82948; 83036; 83605; 83735; 83880; 84100; 84145; 84484; 85025; 85610; 85651; 85730; 86140; 87040; 87070; 87071; 87076; 87205; 87635; 87804; 93005; 94640; 96374; 96375; 99291; G0378; J0692; J1200; J1644; J1650; J1815; J2185; J2250; J2543; J3010; J3370; J3475; J3480; J3490; J7030; J7070

== ENCOUNTER → 2022-06-17 | Outpatient (CLI) | payer BC ==
[~2022-06-17] MED LIST changes: -AMOX-426 PO; +HEPARIN PF LOCK 500 UNIT/5ML IV SCH; +LEVO750T68 PO; +LOSA25TA2 PO; +MONT-46 PO; -MONT10TA21 PO
== END | disposition home or self-care (01) ==
LOC: LAB 10:40
PROVIDERS: ATTEND Internal Medicine Pulmonary Disease
DX: Z45.2 Encounter for adjustment and management of vascular access device (principal); E88.01 Alpha-1-antitrypsin deficiency
CPT/HCPCS: 96523; 87040 ×2; 87077 ×2; 87186 ×2; 36415; J1642

== ENCOUNTER → 2022-07-16 | Outpatient (CLI) | payer BC ==
[~2022-07-16] MED LIST changes: -HEPARIN PF LOCK 500 UNIT/5ML IV SCH
== END | disposition home or self-care (01) ==
LOC: RAH 14:37
PROVIDERS: ATTEND Family Medicine
DX: Z12.31 Encounter for screening mammogram for malignant neoplasm of breast (principal)
CPT/HCPCS: 77067

== ENCOUNTER → 2022-07-31 | Outpatient (CLI) | payer BC | END | disposition home or self-care (01) | LOC: LAB 10:07 | PROVIDERS: ATTEND Internal Medicine Pulmonary Disease | DX: E88.01 Alpha-1-antitrypsin deficiency (principal) | CPT/HCPCS: 36415; 82103 ==

== ENCOUNTER → 2022-11-06 | Outpatient (CLI) | payer BC ==
[2022-11-06 11:36] LABS: BASOPHILS % (AUTO) 0.4 % (0.0-5.0); EOSINOPHILS % (AUTO) 1.5 % (0.0-8.0); LYMPHOCYTES % (AUTO) 25.1 % (21.0-51.0); MEAN CORPUSCULAR HEMOGLOBIN 28.4 pg (27.0-33.0); MEAN CORPUSCULAR HGB CONC 32.3 g/dL (32.0-36.0); MEAN CORPUSCULAR VOLUME 87.7 fL (79-99); MONOCYTES % (AUTO) 6.6 % (3.0-13.0); PLATELET COUNT (AUTO) 204 K/uL (130-400); RED BLOOD CELL COUNT(AUTO) 5.36 MIL/uL (4.00-5.50); RED CELL DISTRIBUTION WIDTH 14.1 % (11.0-15.5); WHITE BLOOD COUNT (AUTO) 9.4 K/uL (4.8-10.8)
== END | disposition home or self-care (01) ==
LOC: LAB 10:35
PROVIDERS: ATTEND Internal Medicine Pulmonary Disease
DX: E88.01 Alpha-1-antitrypsin deficiency (principal); J43.9 Emphysema, unspecified
CPT/HCPCS: 36415; 85025; 87040